=== PATIENT | female | born 1955 | race Caucasian/White ===

== ENCOUNTER 2017-02-21 09:17 | Emergency (ER) | payer OTHER ==
[2017-02-21 09:23] VITALS: TEMP 98.1; BMI 40.2
--- NOTE | 2017-02-21 09:40 | PDOC ---
History of Present Illness - General Chief Complaint: Chest Pain Stated Complaint: CHEST PAIN Time Seen by Provider: 02/21/17 09:39 - History of Present Illness Initial Comments: 02/21/17 10:18 Complaint: Chest pain History of present illness: After going to bed last night, patient developed midsternal chest pain described as a pressure that radiated through like a "knife" to the midback. She was able to sleep but the pain was present this morning when she woke up. However, it is not as severe as last night. She took ibuprofen for her chronic low back pain before going to bed, and has been taking ibuprofen frequently lately for this condition. She also took an aspirin last night. Review of systems: No nausea vomiting diarrhea diaphoresis shortness of breath abdominal pain visual or focal neurologic symptoms or unsteadiness of gait. No fever/chills, headache, URI symptoms, sore throat, cough. Remainder systems reviewed and found to be negative Past medical history: 60 pound weight loss in the last year, intentional and accomplish with dieting under the supervision of a home health speech therapist. Cholecystectomy. Ankle fracture with ORIF. Anxiety. Recently elevated cholesterol approximately 250. Cholesterol was normal before weight loss Medications: Xanax, Librium, Bentyl, Pepcid, Prozac Detrol ALLERGIES: The old record states that she is ALLERGIC to aspirin, but the patient states she took aspirin last night and is not ALLERGIC Social history: Patient is , works in accounting, and is raising 3 children for her daughter, who is disabled and in a mcfp. She admits considerable stress due to her job and her grandchildren. Denies tobacco alcohol or nonprescription drugs Family history: Patient is adopted and is no information about her parents or siblings Physical exam: Alert oriented 3 well-developed well-nourished no acute distress cheerful and cooperative. States she still has substernal discomfort radiating to the back but it is less than at onset Afebrile, vital signs normal PERRLA, fundi benign, ENT clear. No pallor or icterus Neck supple without bruit mass or nodes Lungs clear with full breath sounds throughout bilaterally CV S1 and S2 distant, normal in character, without murmur or gallop, pulses full and symmetric. No bruits no JVD no edema Abdomen nondistended, bowel sounds normal, soft without mass tenderness organomegaly Neurological C2 to 12 intact. Strength full and symmetric. No focal sensory or motor deficits. Gait stable and unimpaired Extremities no CCE Skin clear, no rash, adequate turgor and what mucous membranes Impression: Most likely etiology of the pain is dyspepsia/gastritis/GERD, aggravated by ibuprofen usage and by stress. The patient has a history of dyspepsia and periodically uses Pepcid symptomatically. She has a recently elevated cholesterol but no other known risk factors for cardiac disease. Plan: EKG cardiac enzymes empiric treatment with proton pump inhibitor, and observation. Further treatment depending on results and response Past History - Past Medical History Allergies/Adverse Reactions: Allergies Allergy/AdvReac Type Severity Reaction Status Date / Time aspirin Allergy Verified 02/21/17 09:23 Home Medications: Ambulatory Orders Alprazolam [Xanax] 0.25 mg PO DAILY 02/21/17 Chlordiazepoxide/Clidinium Br [Librax Capsule] 1 each PO DAILY 02/21/17 Desloratadine 5 mg PO DAILY 02/21/17 Dicyclomine HCl [Bentyl] 10 mg PO DAILY 02/21/17 Famotidine [Pepcid] 40 mg PO DAILY 02/21/17 Fluoxetine HCl [Prozac] 20 mg PO DAILY 02/21/17 Pantoprazole Sodium [Protonix -] 40 mg PO DAILY #14 tablet.ec 02/21/17 Tolterodine Tartrate LA [Detrol LA -] 4 mg PO DAILY 02/21/17 - Surgical History Cholecystectomy: Yes - Psycho/Social/Smoking Cessation Hx Anxiety: Yes Suicidal Ideation: No Smoking History: Never smoked Hx Alcohol Use: No Drug/Substance Use Hx: No Substance Use Type: None *Physical Exam - Vital Signs Last Vital Signs Temp Pulse Resp BP Pulse Ox 98.1 F 72 16 113/71 100 02/21/17 09:18 02/21/17 09:18 02/21/17 09:18 02/21/17 09:18 02/21/17 09:18 ED Treatment Course - LABORATORY CBC & Chemistry Diagram: 02/21/17 09:50 02/21/17 09:40 - ADDITIONAL ORDERS Additional order review: Laboratory Results 02/21/17 02/21/17 02/21/17 09:40 09:40 09:40 INR 1.00 Sodium 139 Potassium 4.0 Chloride 106 Carbon Dioxide 26 Anion Gap 7 L BUN 21 H Creatinine 0.6 Creat Clearance w eGFR > 60 Random Glucose 92 Calcium 8.7 Total Bilirubin 0.6 AST 22 ALT 22 Alkaline Phosphatase 68 Creatine Kinase 70 Troponin I < 0.03 L Total Protein 5.8 L Albumin 3.6 02/21/17 09:50 RBC 4.08 MCV 89.9 MCHC 35.2 RDW 11.7 MPV 7.9 Neutrophils % 60.9 Lymphocytes % 26.2 Monocytes % 8.8 Eosinophils % 2.9 Basophils % 1.2 - RADIOLOGY Radiology Studies Ordered: Category Date Time Status CHEST X-RAY PORTABLE* [RAD] Stat Radiology 02/21/17 09:40 Completed - Medications Given in the ED: ED Medications Discontinued Medications Generic Name Dose Route Start Last Admin Trade Name Freq PRN Reason Stop Dose Admin Pantoprazole Sodium 40 mg/ 100 mls @ 200 mls/hr 02/21/17 10:05 02/21/17 10:21 Sodium Chloride IVPB 02/21/17 10:34 200 mls/hr ONCE ONE Administration Medical Decision Making - Medical Decision Making 02/21/17 11:07 EKG, cardiac enzymes, and chest x-ray are normal. Further history clear otherwise that the patient took her ibuprofen immediately before lying down to sleep last night. This is unusual, because she usually takes it several hours before going to bed. This may be a possible etiology. It seems unlikely that this pain is heart related After IV Protonix, patient's chest discomfort is completely resolved, and she feels much better. Continue Protonix. Return to ER if chest pain worsens or there are other related symptoms such as nausea, diaphoresis, or shortness of breath, lightheadedness or dizziness. Otherwise follow-up with Dr. Abdi, primary care physician. Patient fully ambulatory, in no pain or other distress upon discharge with her , to follow-up as directed. *DC/Admit/Observation/Transfer Diagnosis at time of Disposition: GERD (gastroesophageal reflux disease) Qualifiers: Esophagitis presence: esophagitis presence not specified Qualified Code(s): K21.9 - Gastro-esophageal reflux disease without esophagitis - Discharge Dispostion Disposition: HOME Condition at time of disposition: Improved Admit: No - Patient Instructions Printed Discharge Instructions: DI for Atypical Chest Pain Additional Instructions: Protonix as directed Minimize use of ibuprofen Return to ER if pain recurs or is accompanied by other symptoms such as lightheadedness, dizziness, nausea, perspiring, or shortness of breath. Otherwise follow-up with your primary physician Dr. Kirkland
[2017-02-21 10:05] LABS: BASOPHIL 1.2 % (0-2.0); EOSINOPHIL 2.9 % (0-4.5); MCH 31.6 pg (25.7-33.7); MCHC 35.2 g/dl (32.0-36.0); MEAN CELL VOLUME 89.9 fl (80-96); MEAN PLT VOLUME 7.9 fl (7.5-11.1); NEUTROPHILS 60.9 % (42.8-82.8); PLATELET COUNT 251 K/MM3 (134-434); RDW 11.7 % (11.6-15.6); WHITE BLOOD COUNT 5.1 K/mm3 (4.0-10.0)
[2017-02-21 10:15] LABS: PROTHROMBIN TIME (PATIENT) 11.2 SEC (10.2-13.0)
[2017-02-21] MEDS ORDERED: PANTOPRAZOLE SODIUM 40 MG VIAL ONE (10:17)
[2017-02-21] MEDS: PANTOPRAZOLE SODIUM 40 MG in SODIUM CHLORIDE 100 ML IVPB ONE (10:21)
[2017-02-21 10:22] LABS: ALBUMIN 3.6 g/dl (3.5-5.0); ALK PHOS 68 U/L (32-92); ANION GAP 7 (8-16); BILIRUBIN,TOTAL 0.6 mg/dl (0.2-1.0); CALCIUM 8.7 mg/dl (8.4-10.2); CO2 26 mmol/L (22-28); COCKROFT - GAULT NT; CPK(DFH) 70 IU/L (26-140); CREATININE 0.6 mg/dl (0.6-1.3); GLUCOSE,RANDOM 92 mg/dl (74-106); SGOT/AST 22 U/L (10-42); SGPT/ALT 22 U/L (10-40); TOT PROT 5.8 g/dl (6.4-8.3)
[2017-02-21 10:32] LABS: TROPONIN I (DFP) < 0.03 ng/ml (0.03-0.50)
[2017-02-21 11:18] VITALS: BP 112/67; PULSE 62
--- NOTE | 2017-02-22 10:51 | EKG ---
Test Reason : Blood Pressure : / mmHG Vent. Rate : 061 BPM Atrial Rate : 061 BPM P-R Int : 184 ms QRS Dur : 080 ms QT Int : 430 ms P-R-T Axes : 096 -06 016 degrees QTc Int : 432 ms POOR DATA QUALITY, INTERPRETATION MAY BE ADVERSELY AFFECTED SINUS RHYTHM NONSPECIFIC T WAVE ABNORMALITY WHEN COMPARED WITH ECG OF 07-MAY-2011 18:44, NO SIGNIFICANT CHANGE WAS FOUND Confirmed by JASBIR WILL, CALLY ([id number]) on 02/22/2017 10:50:42 AM Referred By: ONDINA LEVINE Confirmed By:CALLY MARTELL MD
== END 2017-02-21 11:18 | disposition home or self-care (01) ==
LOC: FER 09:17
PROC: 3E033GC Introduction of Other Therapeutic Substance into Peripheral Vein, Percutaneous Approach (ICD-10-PCS; principal; 2017-02-21)
DX: K21.9 Gastro-esophageal reflux disease without esophagitis (principal)
CPT/HCPCS: 36415; 71010-TC; 80053; 82550; 84484; 85025; 85610; 93005; 99283-25